=== PATIENT | female | born 1980 | race Caucasian/White ===

== ENCOUNTER 2016-11-17 20:51 | Emergency (ER) | payer MEDICAID ==
[~2016-11-17] VITALS: Ht 152.4 cm; Wt 77.0 kg
[~2016-11-17 20:51] MED LIST: ALPR2TAB3 PO; IBUP-232 PO; ROBA500T PO; SUBO8MIS SL
[2016-11-17 20:53] VITALS: BP 182/102; RESP 16; TEMP 98.2; O2SAT 95
[2016-11-17 22:15] VITALS: BP 170/104; PULSE 91; RESP 18; O2SAT 98
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
[2016-11-17 23:13] VITALS: BP 175/99
== END 2016-11-17 23:14 | disposition home or self-care (01) ==
LOC: NEPB 20:51
DX: B34.9 Viral infection, unspecified (principal)
CPT/HCPCS: 87081; 87804; 87880; 99283

== ENCOUNTER 2016-12-01 14:07 | Emergency (ER) | payer MEDICAID ==
[~2016-12-01] VITALS: Ht 152.4 cm; Wt 80.0 kg
[2016-12-01 14:11] VITALS: BP 185/114; PULSE 89; RESP 15; TEMP 98.3; O2SAT 97
--- NOTE | 2016-12-01 15:45 | RADRPT ---
EXAM DATE/TIME: 12/01/2016 15:24 [facility] COMPARISON: No previous studies available for comparison. INDICATIONS : Cold and flu-like symptoms. MEDICAL HISTORY : None. SURGICAL HISTORY : Knee repair, left. Femur repair, left. Ankle repair, right, Foot repair, right. ENCOUNTER: Initial ACUITY: 2 weeks PAIN SCORE: 5/10 LOCATION: Chest. FINDINGS: A single view of the chest demonstrates the lungs to be symmetrically aerated without evidence of mas s, infiltrate or effusion. The cardiomediastinal contours are unremarkable. Osseous structures are intact. CONCLUSION: No acute disease. Bam Dang MD FACR on December 01, 2016 at 15:44 Board Certified Radiologist. This report was verified electronically.
[2016-12-01] MEDS ORDERED: MEDR4PAK PO (16:04)
[2016-12-01] MEDS ORDERED: BENZ100 PO (16:04)
[2016-12-01] MEDS ORDERED: AZIT250T3 PO (16:04)
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
== END 2016-12-01 16:28 | disposition home or self-care (01) ==
LOC: NEPB 14:07
DX: J06.9 Acute upper respiratory infection, unspecified (principal); G89.29 Other chronic pain; I10 Essential (primary) hypertension
CPT/HCPCS: 71010; 87804; 99283

== ENCOUNTER 2016-12-08 12:50 | Emergency (ER) | payer MEDICAID ==
[~2016-12-08] VITALS: Ht 152.4 cm; Wt 79.5 kg
[~2016-12-08 12:50] MED LIST changes: -ALPR2TAB3 PO; +AZIT250T3 PO; +BENZ100 PO; -IBUP-232 PO; +MEDR4PAK PO; -ROBA500T PO; -SUBO8MIS SL
[2016-12-08 12:52] VITALS: BP 174/99; PULSE 95; RESP 16; TEMP 99.3; O2SAT 97
[2016-12-08] MEDS ORDERED: ALPR2TAB3 PO (13:21)
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
== END 2016-12-08 14:57 | disposition home or self-care (01) ==
LOC: NEPB 12:50
DX: J30.89 Other allergic rhinitis (principal); I10 Essential (primary) hypertension; Z77.22 Contact with and (suspected) exposure to environmental tobacco smoke (acute) (chronic)
CPT/HCPCS: 99283

== ENCOUNTER 2017-11-19 01:15 | Emergency (ER) | payer MEDICAID ==
[~2017-11-19] VITALS: Ht 152.4 cm; Wt 85.0 kg
[~2017-11-19 01:15] MED LIST changes: +ALPR2TAB3 PO; -AZIT250T3 PO; -BENZ100 PO; -MEDR4PAK PO
[2017-11-19 01:18] VITALS: BP 228/107; PULSE 76; RESP 16; TEMP 99.3; O2SAT 99
[2017-11-19 01:38] VITALS: BP 165/75; PULSE 73; RESP 18; O2SAT 98
[2017-11-19] MEDS ORDERED: DIPHTH/TETANUS/ACEL PERTUSSIS (BOOSTER) 0.5 ML VIAL/PFS IM ONE (02:15)
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
--- NOTE | 2017-11-19 02:57 | RADRPT ---
EXAM DATE/TIME: 11/19/2017 02:42 [place] COMPARISON: No previous studies available for comparison. INDICATIONS : Left lateral ankle pain with swelling. MEDICAL HISTORY : None. SURGICAL HISTORY : None. ENCOUNTER: Initial ACUITY: 4 - 6 days PAIN SCORE: 3/10 LOCATION: Left lateral ankle FINDINGS: Two view exam was performed of the left ankle. The bony structures are in normal alignment. No evid ence of fracture, dislocation, or soft tissue swelling. No radiopaque foreign bodies are seen. Bony mineralization is normal. CONCLUSION: No acute disease. Antoine Lemos Jr., MD on November 19, 2017 at 2:55 Board Certified Radiologist. This report was verified electronically.
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
[2017-11-19] MEDS ORDERED: CYCL10TA PO (03:46)
== END 2017-11-19 04:11 | disposition home or self-care (01) ==
LOC: NEPE 01:15
DX: S00.83XA Contusion of other part of head, initial encounter (principal); S16.1XXA Strain of muscle, fascia and tendon at neck level, initial encounter; S93.402A Sprain of unspecified ligament of left ankle, initial encounter; I10 Essential (primary) hypertension; B19.20 Unspecified viral hepatitis C without hepatic coma; F31.9 Bipolar disorder, unspecified; Y04.2XXA Assault by strike against or bumped into by another person, initial encounter; Z79.899 Other long term (current) drug therapy
CPT/HCPCS: 70450; 70486; 72125; 73600; 90471; 90715

== ENCOUNTER 2017-12-19 16:42 | Emergency (ER) | payer MEDICAID ==
[~2017-12-19] VITALS: Ht 152.4 cm; Wt 82.0 kg
[~2017-12-19 16:42] MED LIST changes: +CYCL10TA PO
[2017-12-19 16:44] VITALS: BP 144/70; PULSE 72; RESP 22; TEMP 98.6; O2SAT 97
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
== END 2017-12-19 19:59 | disposition home or self-care (01) ==
LOC: NEPD 16:42
DX: J06.9 Acute upper respiratory infection, unspecified (principal); I10 Essential (primary) hypertension; F31.9 Bipolar disorder, unspecified; Z86.19 Personal history of other infectious and parasitic diseases; Z79.899 Other long term (current) drug therapy
CPT/HCPCS: 87081; 87804; 87880; 99283